=== PATIENT | female | born 2000 | race Two or more races ===

== ENCOUNTER 2025-03-30 07:00 | Day surgery (SDC) | payer OTHER ==
[~2025-03-30 07:00] MED LIST: POLY119PG PO; ULTRACET PO; VITAMINA C; ZOFRAN ODT4 MG/UDTAB PO
[2025-03-30] MEDS ORDERED: MIDAZOLAM HCL 2 MG/2 ML VIAL IV ONE (09:45)
[2025-03-30] MEDS ORDERED: fentaNYL CITRATE 50 MCG/ML AMPUL IV PUSH ONE (09:45)
[2025-03-30] MEDS ORDERED: ONDANSETRON HCL 2 MG/ML VIAL IV ONE (09:45)
[2025-03-30] MEDS ORDERED: DIPHENHYDRAMINE HCL 50 MG/ML VIAL 1ML IV ONE (09:45)
[2025-04-03] MEDS ORDERED: CEPHALEXIN500 M1 PO (15:33)
== END 2025-03-30 11:15 | disposition home or self-care (01) ==
LOC: AMB-ENDOS 07:00
PROVIDERS: ATTEND Colon & Rectal Surgery
DX: D37.5 Neoplasm of uncertain behavior of rectum (principal); Z12.11 Encounter for screening for malignant neoplasm of colon; K64.8 Other hemorrhoids; K62.89 Other specified diseases of anus and rectum; R19.4 Change in bowel habit

== ENCOUNTER → 2025-04-03 | Emergency (ER) | payer OTHER ==
[~2025-04-03] VITALS: Ht 160 cm; Wt 63.5 kg
[~2025-04-03] MED LIST changes: +CEFTRIAXONE SODIUM 1,000 MG VIAL IM STA; +CEFTRIAXONE SODIUM 1,000 MG VIAL ONE; +CEPHALEXIN500 M1 PO; +DEXAMETHASONE SODIUM PHOSPHATE 4 MG/ML VIAL IM STA; +DEXAMETHASONE SODIUM PHOSPHATE 4 MG/ML VIAL ONE
[2025-04-03 11:31] LABS: BASO % 0.3 % (0.1-1.2); EOS # 0.04 (0.04-0.54); EOS % 0.5 % (0.7-7.0); LYMPH # 2.13 (1.18-3.74); LYMPH % 27.3 % (19.3-53.1); MEAN PLATELET VOLUME 11.40 fl (9.4-12.4); MONO # 0.29 (0.24-0.82); MONO % 3.7 % (4.7-12.5); NEUT # 5.31 (1.56-6.13); NEUT % 67.9 % (34.0-71.1); RED CELL DISTRIBUTION WIDTH 12.5 % (11.6-14.4)
[2025-04-03 11:42] LABS: ERYTHROCYTE SEDIMENTATION RATE 27 mm/hr (0-20)
[2025-04-03 11:48] LABS: BUN CREA RATIO 11.0 (7.0-25.0); CREATININE SERUM 0.66 mg/dL (0.55-1.02); GFR 110.03; GLUCOSE FASTING 100.0 mg/dL (65-100); OSMOLALITY SERUM 279.0 MOSM/KG (275-295)
[2025-04-03 12:03] LABS: INR 1.02
[2025-04-03 15:57] VITALS: BP 118/81; O2SAT 99
== END | disposition home or self-care (01) ==
LOC: ER 10:10
PROVIDERS: General Practice
DX: I80.8 Phlebitis and thrombophlebitis of other sites (principal); M79.602 Pain in left arm